=== PATIENT | female | born 1990 | race African-American/Black ===

== ENCOUNTER 2022-03-29 18:26 | Emergency (ER) | payer OTHER ==
[2022-03-29 18:50] VITALS: BP 149/93; PULSE 100; RESP 16; TEMP 99.5; BMI 20.7
[2022-03-29] MEDS ORDERED: IBUPROFEN 400 MG TABLET (FP) PO ONE ×2 (19:22→19:24)
== END 2022-03-29 19:43 | disposition home or self-care (01) ==
LOC: FER 18:26
DX: S16.1XXA Strain of muscle, fascia and tendon at neck level, initial encounter (principal); V49.50XA Passenger injured in collision with unspecified motor vehicles in traffic accident, initial encounter
CPT/HCPCS: 72050-TC-FY; 99283-25